=== PATIENT | male | born 1925 | race Caucasian/White ===

== ENCOUNTER → 2016-10-30 | Outpatient (CLI) | payer OTHER ==
[~2016-10-30] MED LIST: AMLO-114 PO; ASPEC325 PO; ATOR-26 PO; CLX20 PO; DOCU-94 PO; FIBE1CHW PO; FINA5TAB PO; FSTTS TOP; GLC/500 PO; HYDC25 PO; HYDRTAB8 PO; LISI20TA3 PO; MULT-506 PO; NAPR1TAB9 PO; PRLSR20 PO; TAMS0.4C38 PO; [UNRECOGNIZED DRUG - CODE]; [UNRECOGNIZED DRUG - CODE] TOP
[2016-10-30 17:50] LABS: THYROID STIMULATING HORMONE 1.5 uIu/ml (0.300-4.500)
== END | disposition home or self-care (01) ==
LOC: C.LABBFT 11:47
PROVIDERS: ATTEND Internal Medicine Endocrinology, Diabetes & Metabolism
DX: E55.9 Vitamin D deficiency, unspecified (principal); E05.90 Thyrotoxicosis, unspecified without thyrotoxic crisis or storm; E04.9 Nontoxic goiter, unspecified